=== PATIENT | male | born 1935 | race Caucasian/White ===

== ENCOUNTER → 2016-08-18 | Outpatient (CLI) | payer OTHER, BC | LOC: BHFA 15:45 | PROVIDERS: ATTEND Internal Medicine Cardiovascular Disease | DX: I48.91 Unspecified atrial fibrillation (principal); I47.1 Supraventricular tachycardia; I63.9 Cerebral infarction, unspecified; I82.409 Acute embolism and thrombosis of unspecified deep veins of unspecified lower extremity; I26.99 Other pulmonary embolism without acute cor pulmonale; R73.01 Impaired fasting glucose; Q21.1 Atrial septal defect ==

== ENCOUNTER 2016-10-13 10:04 | Emergency (ER) | payer OTHER, BC ==
[2016-10-13 10:11] VITALS: TEMP 97.7; O2SAT 95
--- NOTE | 2016-10-13 10:30 | EDPHY ---
H & P Stated Complaint: pain at back of l knee with hx of dvt on coumadin Time Seen by Provider: 10/13/16 10:14 HPI/ROS: CHIEF COMPLAINT: Concerns about DVT HISTORY OF PRESENT ILLNESS: 81-year-old male with prior history of DVT, on daily warfarin maintenance for thrombus prevention, woke it 0 200 hours complaining of left popliteal fossa pain. Atraumatic. Pain continues. No paresthesia distally. Able to bear weight. Denies: Chest pain, abdominal pain, dyspnea PRIMARY CARE PROVIDER: Dr. Nato England REVIEW OF SYSTEMS: A ten point review of systems was performed and is negative with the exception of the items mentioned in the HPI PAST MEDICAL & SURGICAL HISTORY: Prior DVT SOCIAL HISTORY: nonsmoker PHYSICAL EXAM (Prior to examination, patient consented to physical exam, hands were washed and my usual and customary physical exam procedures followed) 1) GENERAL: Well-developed, well-nourished, alert and oriented. Appears to be in no acute distress. 2) HEAD: Normocephalic, atraumatic 3) HEENT: Sclera anicteric. 4) NECK: Full range of motion, no meningeal signs. 5) LUNGS: Clear auscultation bilaterally. 6) HEART: Regular rate and rhythm. 7) ABDOMEN: No guarding, no rebound, no focal tenderness, 8) MUSCULOSKELETAL: Left lower extremity: No visible asymmetry, no tenderness to palpation including popliteal fossa. Compartments soft. DP PT pulses present and brisk bilaterally. Brisk capillary refill with normal color normal temperature distally. No pain with range of motion of the left knee. 9) BACK: no visual or palpable abnormality. 10) SKIN: No rash, no petechiae. 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 - Social History Smoking Status: Never smoked Constitutional: Initial Vital Signs Temperature (C) 36.5 C 10/13/16 10:08 Heart Rate 57 L 10/13/16 10:08 Respiratory Rate 20 10/13/16 10:08 Blood Pressure 112/64 10/13/16 10:08 O2 Sat (%) 95 10/13/16 10:08 O2 Delivery Mode Room Air Allergies/Adverse Reactions: Penicillins Allergy (Unknown, Verified 10/13/16 10:05) Other-Enter Comments Home Medications: Medication Instructions Recorded Calcium Carbonate [Oyster Shell 500 mg PO BID 03/25/13 Calcium 500 mg (*)] Diltiazem HCl [Diltiazem 24Hr Cd] 180 mg PO DAILY18 03/25/13 Chlorthalidone [Chlorthalidone 25 25 mg PO DAILY 01/13/15 mg (*)] Cholecalciferol Vit D3 [Vitamin D3 1,000 units PO BID 01/13/15 (*)] Warfarin Sodium [Coumadin 7.5MG 7.5 mg PO WESA 01/13/15 (*)] Warfarin Sodium [Jantoven] 10 mg PO SUMOTUTHFR 01/13/15 Medical Decision Making - Diagnostics Imaging Results: Imaging Impressions Extremity Venous Study 10/13/16 10:15 Impression: No deep venous thrombosis left leg. Results called and discussed with Sophie Hall PA-C, at 10/13/2016 11:06. ED Course/Re-evaluation: 11:13 a.m.: Re-evaluation. Discussed his negative imaging studies negative for DVT negative for Pablo cyst. He is neurovascular intact on re-examination with soft compartments. Doubt compartment syndrome. Doubt arterial thrombus. Plan will be discharged with my usual customary orthopedic precautions and instructions. - Data Points Laboratory Results: 10/13/16 10:32 PT 27.1 SEC H SEC (12.0-15.0) INR 2.48 H (0.83-1.16) APTT 36.0 SEC SEC (23.0-38.0) Departure - Departure Disposition: Home, Routine, Self-Care Clinical Impression: Cramp in lower extremity associated with sleep Condition: Good Instructions: Leg Cramps (ED) Additional Instructions: Return to the ER if you develop new or worsening symptoms, if you develop discoloration or any other symptoms that concern you Referrals: Nato England MD [Primary Care Provider] - 1-2 days without fail
[2016-10-13 10:48] LABS: INR 2.48 (0.83-1.16); PROTIME(PATIENT) 27.1 SEC (12.0-15.0)
[2016-10-13 11:27] VITALS: BP 105/71; PULSE 58; RESP 12
== END 2016-10-13 11:26 | disposition home or self-care (01) ==
DX: R25.2 Cramp and spasm (principal); Z79.01 Long term (current) use of anticoagulants; Z85.46 Personal history of malignant neoplasm of prostate; Z86.718 Personal history of other venous thrombosis and embolism

== ENCOUNTER → 2017-10-01 | Outpatient (CLI) | payer OTHER, BC ==
[~2017-10-01] MED LIST: GADOBUTROL 10 ML VIAL IVP ONE
== END ==
LOC: FIMAGING 09:31
PROVIDERS: ATTEND Internal Medicine Infectious Disease
DX: M65.9 Synovitis and tenosynovitis, unspecified (principal)
CPT/HCPCS: 73220; A9585

== ENCOUNTER 2017-10-22 16:29 | Emergency (ER) | payer OTHER, BC ==
[2017-10-22 16:38] VITALS: BP 120/70
--- NOTE | 2017-10-22 17:12 | EDPHY ---
H & P Time Seen by Provider: 10/22/17 16:57 HPI/ROS: CHIEF COMPLAINT: Skin tear right leg HISTORY OF PRESENT ILLNESS: 82-year-old male presents to the emergency department with skin tear to his right lower leg. The patient cut his leg on a anuradha nail that was sticking out from piece of wood. The incident happened just prior to arrival. He cleansed it with peroxide at home. His last tetanus shot was 6 months ago. Denies any other trauma or injury. ROS: Denies numbness or tingling in his toes, retained foreign body. Past Medical/Surgical History: AFib, DVT, prostate cancer, parathyroidectomy, asbestos in longs Social History: Has a life partner and lives in [place] Smoking Status: Never smoked Physical Exam: On examination the patient has superficial skin tear to the right anterior lower leg. No suturable lacerations noted. No palpable bony tenderness. Full range of motion of the right lower extremity. Normal sensation to light touch with normal 2 point discrimination. No other injuries noted. Constitutional: Initial Vital Signs Temperature (C) 36.3 C 10/22/17 16:37 Heart Rate 74 10/22/17 16:37 Respiratory Rate 16 10/22/17 16:37 Blood Pressure 120/70 10/22/17 16:37 O2 Sat (%) 94 10/22/17 16:37 O2 Delivery Mode Room Air Allergies/Adverse Reactions: Penicillins Allergy (Unknown, Verified 10/22/17 16:34) Other-Enter Comments Home Medications: Medication Instructions Recorded Calcium Carbonate [Oyster Shell 500 mg PO BID 03/25/13 Calcium 500 mg (*)] Diltiazem HCl [Diltiazem 24Hr Cd] 180 mg PO DAILY18 03/25/13 Chlorthalidone [Chlorthalidone 25 25 mg PO DAILY 01/13/15 mg (*)] Cholecalciferol Vit D3 [Vitamin D3 1,000 units PO BID 01/13/15 (*)] Warfarin Sodium [Coumadin 7.5MG 7.5 mg PO WESA 01/13/15 (*)] Warfarin Sodium [Jantoven] 10 mg PO SUMOTUTHFR 01/13/15 Myrbetriq 10/22/17 MDM/Departure - [facility] ED Course/Re-evaluation: 82-year-old male presents to the emergency department with skin tear to the right lower extremity. The wound was thoroughly cleansed. Superficial skin flap was removed. Bacitracin dressing applied. The patient was given wound care precautions. His last tetanus shot was 6 months ago. - Depart Disposition: Home, Routine, Self-Care Clinical Impression: Abrasion of right leg Qualifiers: Encounter type: initial encounter Qualified Code(s): S80.811A - Abrasion, right lower leg, initial encounter Condition: Good Instructions: Abrasion (ED), Acute Wounds (ED) Additional Instructions: Return if you notice any signs or symptoms of infection such as redness, swelling, increased pain, fever, purulent drainage. Avoid any open water until the wound has completely healed. Activity as tolerated. Referrals: Nato England MD [Primary Care Provider] - As per Instructions
== END 2017-10-22 17:23 | disposition home or self-care (01) ==
DX: S80.811A Abrasion, right lower leg, initial encounter (principal); Z79.01 Long term (current) use of anticoagulants; Z85.46 Personal history of malignant neoplasm of prostate; W26.8XXA Contact with other sharp object(s), not elsewhere classified, initial encounter

== ENCOUNTER → 2017-10-28 | Outpatient (CLI) | payer OTHER, BC | LOC: BHFA 11:30 | PROVIDERS: ATTEND Internal Medicine Cardiovascular Disease | DX: R07.9 Chest pain, unspecified (principal); I48.91 Unspecified atrial fibrillation; I47.1 Supraventricular tachycardia ==

== ENCOUNTER 2018-05-21 10:25 | Emergency (ER) | payer OTHER, BC ==
--- NOTE | 2018-05-21 10:42 | EDPHY ---
H & P Time Seen by Provider: 05/21/18 10:33 HPI/ROS: CHIEF COMPLAINT: Short of breath, concerned about pneumonia HISTORY OF PRESENT ILLNESS: Patient was worried that he has pneumonia. Yesterday he felt very fatigued but he was able to run a mile, which is what he usually does. He is on warfarin for DVT and he said his INR was 1.8 a week ago. Last night he felt like he could not get enough air. He felt like he was short of breath and had open the window. He also started coughing in the last 24 hr, with a lot of sinus drainage, but no hemoptysis or sputum production. No fever or chills. Not associated with chest pain. Symptoms mild not positional or exertional. REVIEW OF SYSTEMS: Eye: no change in vision ENT: no sore throat Cardiac: no chest pain or syncope Pulmonary: HPI Abdomen: no vomiting, diarrhea, abdominal pain Musculoskeletal: no leg swelling Skin: no rash Neuro: no headache Constitutional: no fever : no urinary symptoms A comprehensive 10 point review of systems is otherwise negative aside from elements mentioned in the history of present illness. PAST MEDICAL HISTORY: DVT on warfarin, prostate cancer, AFib, parathyroid surgery Social history: Nonsmoker General Appearance: Alert and conversant, cooperative. Eyes: No scleral icterus. ENT, Mouth: Normal mucous membranes. Respiratory: Normal respiratory effort, breath sounds equal, lungs are clear to auscultation. Cardiovascular: Irregular rate and rhythm. No murmur. Gastrointestinal: Abdomen is soft and non tender. Neurological: Alert, face symmetric, normal motor and sensory in extremities. Skin: Warm and dry, no rashes. Musculoskeletal: No peripheral edema. Psychiatric: Not agitated. Emergency Department course/MDM: EKG, troponin and protime, chest x-ray. 1146: results discussed, patient would prefer to be discharged. I still think the most likely reason the for symptoms is a viral URI. Pulmonary embolism would be unlikely with a therapeutic INR. He does not have pneumonia on his chest x-ray, normal WBC and temperature. I warned the patient that acute coronary syndrome or anginal equivalent could not be excluded without further testing and observation admission, but the patient declines. He understands that delay or failure to diagnose this could result in cardiac arrest or disability or , he states that he feels fine and because he is able to run regularly without symptoms wants to go home. He clearly has capacity to make decisions regarding his care. Smoking Status: Never smoked Constitutional: Initial Vital Signs Temperature (C) 36.4 C 05/21/18 10:30 Heart Rate 73 05/21/18 10:30 Respiratory Rate 16 05/21/18 10:30 Blood Pressure 120/81 H 05/21/18 10:30 O2 Sat (%) 95 05/21/18 10:30 O2 Delivery Mode Room Air Allergies/Adverse Reactions: Penicillins Allergy (Unknown, Verified 05/21/18 10:29) Other-Enter Comments Home Medications: Medication Instructions Recorded Calcium Carbonate [Oyster Shell 500 mg PO BID 03/25/13 Calcium 500 mg (*)] Diltiazem HCl [Diltiazem 24Hr Cd] 180 mg PO DAILY18 03/25/13 Chlorthalidone [Chlorthalidone 25 25 mg PO DAILY 01/13/15 mg (*)] Cholecalciferol Vit D3 [Vitamin D3 1,000 units PO BID 01/13/15 (*)] Warfarin Sodium [Coumadin 7.5MG 7.5 mg PO WESA 01/13/15 (*)] Warfarin Sodium [Jantoven] 10 mg PO SUMOTUTHFR 01/13/15 Myrbetriq 10/22/17 Medical Decision Making - Diagnostics EKG Interpretation: 12-lead EKG interpreted by me; official reading is in computer system. My interpretation is atrial fibrillation with left axis, no ischemic changes. Imaging Results: Imaging Impressions Chest X-Ray 05/21/18 10:39 Impression: 1. No pneumonia or effusion. 2. Chronic airways disease and lingular scarring similar to 2015. Imaging: I viewed and interpreted images myself Differential Diagnosis: Differential diagnosis considered for shortness of breath including but not limited to pulmonary infectious process, COPD, asthma, pulmonary embolus and congestive heart failure. - Data Points Laboratory Results: Laboratory Results 05/21/18 10:50 05/21/18 10:50 05/21/18 05/21/18 05/21/18 10:58 10:50 10:50 WBC RBC Hgb Hct MCV MCH MCHC RDW Plt Count MPV Neut % (Auto) Lymph % (Auto) [place] % (Auto) Eos % (Auto) Baso % (Auto) Nucleat RBC Rel Count Absolute Neuts (auto) Absolute Lymphs (auto) Absolute Monos (auto) Absolute Eos (auto) Absolute Basos (auto) Absolute Nucleated RBC Immature Gran % Immature Gran # PT 23.3 SEC H SEC (12.0-15.0) INR 2.06 H (0.83-1.16) Sodium 140 mEq/L mEq/L (135-145) Potassium 4.3 mEq/L mEq/L (3.3-5.0) Chloride 109 mEq/L mEq/L (97-110) Carbon Dioxide 25 mEq/l mEq/l (22-31) Anion Gap 6 mEq/L mEq/L (6-14) BUN 25 mg/dL H mg/dL (7-23) Creatinine 1.0 mg/dL mg/dL (0.7-1.3) Estimated GFR > 60 Glucose 115 mg/dL H mg/dL (70-100) Calcium 9.0 mg/dL mg/dL (8.5-10.4) POC Troponin I 0.00 ng/mL ng/mL (0.00-0.08) 05/21/18 10:50 WBC 7.45 10^3/uL 10^3/uL (3.80-9.50) RBC 5.45 10^6/uL 10^6/uL (4.40-6.38) Hgb 16.7 g/dL g/dL (13.7-17.5) Hct 47.6 % % (40.0-51.0) MCV 87.3 fL fL (81.5-99.8) MCH 30.6 pg pg (27.9-34.1) MCHC 35.1 g/dL g/dL (32.4-36.7) RDW 13.7 % % (11.5-15.2) Plt Count 192 10^3/uL 10^3/uL (150-400) MPV 11.2 fL fL (8.7-11.7) Neut % (Auto) 72.1 % % (39.3-74.2) Lymph % (Auto) 18.3 % % (15.0-45.0) [place] % (Auto) 6.7 % % (4.5-13.0) Eos % (Auto) 1.7 % % (0.6-7.6) Baso % (Auto) 0.9 % % (0.3-1.7) Nucleat RBC Rel Count 0.0 % % (0.0-0.2) Absolute Neuts (auto) 5.37 10^3/uL 10^3/uL (1.70-6.50) Absolute Lymphs (auto) 1.36 10^3/uL 10^3/uL (1.00-3.00) Absolute Monos (auto) 0.50 10^3/uL 10^3/uL (0.30-0.80) Absolute Eos (auto) 0.13 10^3/uL 10^3/uL (0.03-0.40) Absolute Basos (auto) 0.07 10^3/uL 10^3/uL (0.02-0.10) Absolute Nucleated RBC 0.00 10^3/uL 10^3/uL (0-0.01) Immature Gran % 0.3 % % (0.0-1.1) Immature Gran # 0.02 10^3/uL 10^3/uL (0.00-0.10) PT INR Sodium Potassium Chloride Carbon Dioxide Anion Gap BUN Creatinine Estimated GFR Glucose Calcium POC Troponin I Point of Care Test Results: Chemistry 05/21/18 10:58 POC Troponin I 0.00 ng/mL ng/mL (0.00-0.08) Departure - Departure Disposition: Home, Routine, Self-Care Clinical Impression: Dyspnea Qualifiers: Dyspnea type: unspecified Qualified Code(s): R06.00 - Dyspnea, unspecified URI (upper respiratory infection) Qualifiers: URI type: unspecified URI Qualified Code(s): J06.9 - Acute upper respiratory infection, unspecified Condition: Good Instructions: Dyspnea (ED) Additional Instructions: Please return right away for any recurrent symptoms. Please follow-up with your primary care doctor in the next 24-48 hours. Referrals: Nato England MD [Primary Care Provider] - As per Instructions
[2018-05-21 11:10] LABS: PLATELET COUNT 192 10^3/uL (150-400)
[2018-05-21 11:22] LABS: INR 2.06 (0.83-1.16); PROTIME(PATIENT) 23.3 SEC (12.0-15.0)
[2018-05-21 12:00] VITALS: BP 114/77
--- NOTE | 2018-05-21 12:59 | CPEKG ---
Test Reason : OPEN Blood Pressure : / mmHG Vent. Rate : 060 BPM Atrial Rate : 060 BPM P-R Int : 162 ms QRS Dur : 104 ms QT Int : 443 ms P-R-T Axes : 000 -17 010 degrees QTc Int : 443 ms Atrial fibrillation Borderline left axis deviation Confirmed by Shravan Ballard ([id number]) on 05/21/2018 12:58:42 PM Referred By: Confirmed By:Shravan Ballard
== END 2018-05-21 12:00 | disposition home or self-care (01) ==
DX: R06.00 Dyspnea, unspecified (principal); Z79.01 Long term (current) use of anticoagulants
CPT/HCPCS: 84484-PO

== ENCOUNTER → 2018-06-10 | Outpatient (CLI) | payer OTHER, BC | LOC: FIMAGING 09:20 | PROVIDERS: ATTEND Orthopaedic Surgery Sports Medicine | DX: Z98.890 Other specified postprocedural states (principal); M75.32 Calcific tendinitis of left shoulder; M24.812 Other specific joint derangements of left shoulder, not elsewhere classified; M75.102 Unspecified rotator cuff tear or rupture of left shoulder, not specified as traumatic ==

== ENCOUNTER 2018-09-14 08:29 | Emergency (ER) | payer OTHER, BC ==
--- NOTE | 2018-09-14 09:37 | EDPHY ---
HPI/HX/ROS/PE/MDM Narrative: CHIEF COMPLAINT: Dyspnea on exertion HPI: The patient is an 83-year-old male with a history of atrial fibrillation on Coumadin. He reports increasing fatigue and cough over the last week. He has noted over the last few days that his normal exercise, which includes cycling and running, has been cut short by dyspnea. He denies chest pain. He denies syncope. He denies fever. He does complain of sinus drainage and cough , particularly at night. He is worried that he has pneumonia. REVIEW OF SYSTEMS: Aside from elements discussed in the HPI, a comprehensive 10-point review of systems was reviewed and is negative. PMH: Atrial fibrillation on Coumadin, no history of coronary disease. SOCIAL HISTORY: Retired, worked for the [employer]. Denies alcohol or drug abuse. PHYSICAL EXAM: General:Patient is alert, in no acute distress. ENT:Eyes are normal to inspection. ENT inspection normal. Neck: Normal inspection. Full range of motion. Respiratory:No respiratory distress. Breath sounds normal bilaterally. Cardiovascular: Regular rate and rhythm. Strong peripheral pulses. Normal cap refill. Abdomen:The abdomen is nontender to palpation. There are no peritoneal signs. There are normal bowel sounds. Back: Normal to inspection. No tenderness to palpation. Skin: Normal color. No rash. Warm and dry. Extremities: Normal appearance. Full range of motion. Neuro: Oriented x3. Normal motor function. Normal sensory function. ED Course: 10:55 a.m.: We performed an extensive workup on this patient which is negative , with the exception of a subtherapeutic INR. I had extensive discussion regarding our findings with the patient and explained him that his subtherapeutic INR places him at risk for PE. I recommended we perform a CT with contrast of his chest to exclude this possibility but he declines as he is concerned about the radiation. He is currently asymptomatic normal vital signs. His EKG shows atrial fibrillation with a controlled rate. I strongly recommended to the patient that he follow up with Cardiology and have a placed an order for outpatient cardiology evaluation. He also understands that he needs to follow-up with the clinic that manages his anticoagulation. The patient understands he is at risk of possible sudden cardiac or need for procedure should he in fact have a PE or other pathology that we cannot detect secondary to his refusal of CT scan. The patient is essentially presenting for dyspnea on exertion, but his exertion is quite significant. He is continuing to run 4 miles at a time and cycle. He seems to have no difficulty with activities of daily living. I see no signs of pneumonia, hypoxia, acute coronary syndrome, thoracic aortic dissection. - Data Points Imaging Results: Imaging Impressions Chest X-Ray 09/14/18 09:30 Impression: 1. No definite acute findings. 2. Likely chronic airways disease and basilar scarring. 3. Additional findings as above. Imaging: I viewed and interpreted images myself Laboratory Results: Laboratory Results 09/14/18 09:45 09/14/18 09:45 09/14/18 09/14/18 09/14/18 09:49 09:45 09:45 WBC RBC Hgb Hct MCV MCH MCHC RDW Plt Count MPV Neut % (Auto) Lymph % (Auto) [place] % (Auto) Eos % (Auto) Baso % (Auto) Nucleat RBC Rel Count Absolute Neuts (auto) Absolute Lymphs (auto) Absolute Monos (auto) Absolute Eos (auto) Absolute Basos (auto) Absolute Nucleated RBC Immature Gran % Immature Gran # PT 16.6 SEC H SEC (12.0-15.0) INR 1.41 H (0.83-1.16) D-Dimer 0.42 ug/mLFEU ug/mLFEU (0.00-0.50) Sodium Potassium Chloride Carbon Dioxide Anion Gap BUN Creatinine Estimated GFR Glucose Calcium POC Troponin I 0.00 ng/mL ng/mL (0.00-0.08) Nasal Influenza A PCR NEGATIVE FOR FLU A (NEGATIVE) Nasal Influenza B PCR NEGATIVE FOR FLU B (NEGATIVE) 09/14/18 09/14/18 09/14/18 09:45 09:45 09:37 WBC 7.85 10^3/uL 10^3/uL (3.80-9.50) RBC 5.51 10^6/uL 10^6/uL (4.40-6.38) Hgb 16.9 g/dL g/dL (13.7-17.5) Hct 47.9 % % (40.0-51.0) MCV 86.9 fL fL (81.5-99.8) MCH 30.7 pg pg (27.9-34.1) MCHC 35.3 g/dL g/dL (32.4-36.7) RDW 14.0 % % (11.5-15.2) Plt Count 182 10^3/uL 10^3/uL (150-400) MPV 10.9 fL fL (8.7-11.7) Neut % (Auto) 68.9 % % (39.3-74.2) Lymph % (Auto) 20.0 % % (15.0-45.0) [place] % (Auto) 8.4 % % (4.5-13.0) Eos % (Auto) 1.4 % % (0.6-7.6) Baso % (Auto) 1.0 % % (0.3-1.7) Nucleat RBC Rel Count 0.0 % % (0.0-0.2) Absolute Neuts (auto) 5.41 10^3/uL 10^3/uL (1.70-6.50) Absolute Lymphs (auto) 1.57 10^3/uL 10^3/uL (1.00-3.00) Absolute Monos (auto) 0.66 10^3/uL 10^3/uL (0.30-0.80) Absolute Eos (auto) 0.11 10^3/uL 10^3/uL (0.03-0.40) Absolute Basos (auto) 0.08 10^3/uL 10^3/uL (0.02-0.10) Absolute Nucleated RBC 0.00 10^3/uL 10^3/uL (0-0.01) Immature Gran % 0.3 % % (0.0-1.1) Immature Gran # 0.02 10^3/uL 10^3/uL (0.00-0.10) PT INR D-Dimer Cancelled Sodium 139 mEq/L mEq/L (135-145) Potassium 4.2 mEq/L mEq/L (3.5-5.2) Chloride 105 mEq/L mEq/L (97-110) Carbon Dioxide 24 mEq/l mEq/l (22-31) Anion Gap 10 mEq/L mEq/L (6-14) BUN 29 mg/dL H mg/dL (7-23) Creatinine 1.0 mg/dL mg/dL (0.7-1.3) Estimated GFR > 60 Glucose 89 mg/dL mg/dL (70-100) Calcium 9.0 mg/dL mg/dL (8.5-10.4) POC Troponin I Nasal Influenza A PCR Nasal Influenza B PCR Point of Care Test Results: Chemistry 09/14/18 09:49 POC Troponin I 0.00 ng/mL ng/mL (0.00-0.08) General Time Seen by Provider: 09/14/18 09:30 Initial Vital Signs: Initial Vital Signs Temperature (C) 36.5 C 09/14/18 08:33 Heart Rate 68 09/14/18 08:33 Respiratory Rate 18 09/14/18 08:33 Blood Pressure 122/77 H 09/14/18 08:33 O2 Sat (%) 97 09/14/18 08:33 O2 Delivery Mode Room Air Allergies/Adverse Reactions: Penicillins Allergy (Unknown, Verified 09/14/18 08:35) Other-Enter Comments Home Medications: Medication Instructions Recorded Calcium Carbonate [Oyster Shell 500 mg PO BID 03/25/13 Calcium 500 mg (*)] Diltiazem HCl [Diltiazem 24Hr Cd] 180 mg PO DAILY18 03/25/13 Chlorthalidone [Chlorthalidone 25 25 mg PO DAILY 01/13/15 mg (*)] Cholecalciferol Vit D3 [Vitamin D3 1,000 units PO BID 01/13/15 (*)] Warfarin Sodium [Coumadin 7.5MG 7.5 mg PO WESA 01/13/15 (*)] Warfarin Sodium [Jantoven] 10 mg PO SUMOTUTHFR 01/13/15 Myrbetriq 10/22/17 Departure - Departure Disposition: Home, Routine, Self-Care Clinical Impression: Dyspnea on exertion, Subtherapeutic anticoagulation Condition: Good Instructions: Dyspnea (ED) Additional Instructions: Follow-up with your primary doctor within 72 hours. Return to the Emergency Department for fever, chest pain, shortness of breath, increasing pain or other worsening of condition. Follow up with a channel supervisor for further testing, as soon as possible, within 72 hours. Referrals: Nato England MD [Primary Care Provider] - As per Instructions
[2018-09-14 09:57] LABS: PLATELET COUNT 182 10^3/uL (150-400)
[2018-09-14 10:13] LABS: INR 1.41 (0.83-1.16); PROTIME(PATIENT) 16.6 SEC (12.0-15.0)
[2018-09-14 11:22] VITALS: BP 113/67
--- NOTE | 2018-09-14 12:17 | CPEKG ---
Test Reason : OPEN Blood Pressure : / mmHG Vent. Rate : 054 BPM Atrial Rate : 000 BPM P-R Int : 162 ms QRS Dur : 107 ms QT Int : 451 ms P-R-T Axes : 000 -16 005 degrees QTc Int : 428 ms Atrial fibrillation Borderline left axis deviation Confirmed by Emile Gillis ([id number]) on 09/14/2018 12:17:21 PM Referred By: Emile Gillis Confirmed By:Emile Gillis
== END 2018-09-14 11:21 | disposition home or self-care (01) ==
DX: R06.09 Other forms of dyspnea (principal); I48.91 Unspecified atrial fibrillation; Z79.01 Long term (current) use of anticoagulants
CPT/HCPCS: 84484-ER

== ENCOUNTER → 2018-09-15 | Outpatient (CLI) | payer OTHER, BC | LOC: BHFA 09:30 | PROVIDERS: ATTEND Internal Medicine Cardiovascular Disease | DX: I48.91 Unspecified atrial fibrillation (principal); R06.09 Other forms of dyspnea ==

== ENCOUNTER 2018-10-13 13:47 | Day surgery (SDC) | payer OTHER, BC ==
[2018-10-13] MEDS ORDERED: ATROPINE SULFATE 1 MG/10 ML SYR IVP ONE (14:02)
[2018-10-13] MEDS ORDERED: BENZOCAINE UNIT DOSE SPRAY HURRICAINE MM ONE (14:02)
[2018-10-13] MEDS ORDERED: MIDAZOLAM 2 MG/2 ML VIAL IVP ONE (14:02)
[2018-10-13] MEDS ORDERED: NS 500 ML IV ONE (14:02)
[2018-10-13] MEDS ORDERED: fentaNYL 100 MCG/2 ML INJ IVP ONE (14:02)
[2018-10-13 14:44] LABS: INR 1.59 (0.83-1.16); PROTIME(PATIENT) 18.2 SEC (12.0-15.0)
--- NOTE | 2018-10-13 14:59 | PDANEPAE ---
ANE History of Present Illness LORIN, possible synchronized CV. ANE Past Medical History - Cardiovascular History Hx Hypertension: No Hx Arrhythmias: Yes Hx Chest Pain: No Hx Coronary Artery / Peripheral Vascular Disease: No Hx CHF / Valvular Disease: No Cardiovascular History Comment: Atrial fibrillation. - Pulmonary History Hx COPD: No Hx Asthma/Reactive Airway Disease: No Hx Recent Upper Respiratory Infection: No Hx Oxygen in Use at Home: No Hx Sleep Apnea: Yes - Endocrine History Hx Diabetes: No Hypothyroid: No Hyperthyroid: No Obesity: no - Renal History Hx Renal Disorders: Yes Renal History Comment: BPH - Neurological & Psychiatric Hx Hx Neurological and Psychiatric Disorders: No - GI History GERD: no Hx Gastrointestinal Disorders: No - Surgical History Prior Surgeries: s/p parathyroidectomy, abdominal surgery. ANE Review of Systems Review of Systems: - Exercise capacity METS (RN): 3 METS ANE Patient History - Allergies Allergies/Adverse Reactions: Penicillins Allergy (Unknown, Verified 09/14/18 08:35) Other-Enter Comments - Home Medications Home Medications: Calcium Carbonate [Oyster Shell Calcium 500 mg (*)] 500 mg PO BID 03/25/13 [ Last Taken 10/12/18] Diltiazem HCl [Diltiazem 24Hr Cd] 180 mg PO DAILY18 03/25/13 [Last Taken ] Chlorthalidone [Chlorthalidone 25 mg (*)] 12 mg PO DAILY 01/13/15 [Last Taken ] Cholecalciferol Vit D3 [Vitamin D3 (*)] 1,000 units PO BID 01/13/15 [Last Taken 10/12/18] Myrbetriq 50 mg PO DAILY 10/22/17 [Last Taken 10/12/18] Magnesium 250 mg PO DAILY 10/13/18 [Last Taken 10/12/18] - Anes Hx Anes Hx: no prior problems - Smoking Hx Smoking Status: Never smoked - Alcohol Use Alcohol Use: Rarely - Family Anes Hx Family Anes Hx: none ANE Labs/Vital Signs - Labs Result Diagrams: 10/13/18 14:10 - Vital Signs Height: 175 cm Weight: 73.5 kg ANE Physical Exam - Airway Neck exam: decreased ROM Mallampati Score: Class 1 Mouth exam: normal dental/mouth exam - Pulmonary Pulmonary: clear to auscultation - Cardiovascular Cardiovascular: irregularly irregular - ASA Status ASA Status: III ANE Anesthesia Plan Anesthesia Plan: GA with mask
[2018-10-13] MEDS ORDERED: PROPOFOL 200 MG/20 ML VIAL ONE ×2 (15:09→15:42)
--- NOTE | 2018-10-13 15:36 | PDGENHP ---
History & Physical Chief Complaint: persistent AFib History of Present Illness: persistent AFib Relevant Physical Exam: A+Ox4, irr irr, normal rate, no MRG Cardiorespiratory Assessment: persistent AFib -> LORIN/cardioversion
--- NOTE | 2018-10-13 15:56 | EPPROC ---
Electrophysiology Procedure Note: Date: 10/13/2018 Sausage Canner: Bhargav Arce MD Procedures: Transesophageal echocardiography -49785 DC cardioversion -[id number] Indications: 83-year-old male with persistent atrial fibrillation, symptomatic in the form of fatigue and dyspnea. His Coumadin levels have been inconsistently therapeutic; INR today is 1.6. Techniques: Following informed consent, the patient was brought to the EP lab in a fasting nonsedated state, in atrial fibrillation rhythm. IV sedation was provided by the anesthesiology service. Transesophageal echocardiography was performed, demonstrating the absence of left atrial appendage thrombus (see formal report for full details). After ensuring adequate sedation, defibrillation pads were applied in an anterolateral orientation. A single 200 joule biphasic R-wave synchronized transcutaneous shock was applied, resulting in termination of atrial fibrillation and resumption of sinus rhythm with frequent atrial ectopy. The patient tolerated the procedure well. EBL: None Complications: None Assessment: Successful cardioversion of persistent atrial fibrillation Plan: Stop Coumadin; start Eliquis 5 mg twice daily due to unreliably therapeutic INR Return to clinic in 1 week to reassess functional status Patient Problems: Problems Problem Status Onset Elevated INR Acute Leg hematoma Acute Arrhythmia Chronic Atrial fibrillation Chronic History of prostate cancer Chronic History of venous thrombosis and embolism Chronic Hyperlipidemia Chronic Hyperparathyroidism Chronic Inflammatory polyarthropathy Chronic Osteopenia Chronic Osteoporosis Chronic Rheumatoid arthritis Chronic Synovitis and tenosynovitis Chronic
[2018-10-13] MEDS ORDERED: APIXABAN 5 MG TAB PO SCH (16:00)
--- NOTE | 2018-10-13 16:38 | ECHO ---
[email or web address] [address] [address] Main: [phone] Echocardiography Examination Transesophageal Name: ABIOLA CABRERA MR#: [id number] Study Date: 10/13/2018 Study Time: 03:34 PM Date of : 1935 Age: 83 year(s) Height: ( ) Weight: ( ) BSA: Gender: Male Examination: LORIN Contrast: Image Quality: Rhythm: Heart Rate: BP: / Indication: Pre Cardioversion Procedure Staff Referring Physician: Tree Expert: Myles Greenfield RDCS Reading Physician: Tomás Arce MD Requesting Provider: Ordering Physician: Tomás Arce MD Indication: Pre Cardioversion Conclusions Left Ventricle: The EF is visually estimated to be 45 %. Left Atrium Appendage: No thrombus is identified. IAS: An agitated saline study was performed and was negative for intracardiac shunting. Aorta: Mild atheroma in the descending aorta. Findings Left Ventricle: Mildly reduced systolic left ventricular function. The EF is visually estimated to be 45 %. Right Ventricle: Right ventricular systolic function is normal. Left Atrium: The left atrium is moderately to severely dilated. Left Atrium Appendage: Patient: ABIOLA CABRERA Study Date: 10/13/2018 Page 1 of 2 03:34 PM There is a diminished PW-Doppler flow profile. Good color flow doppler in the left atrial appendage. No thrombus is identified. IAS: An agitated saline study was performed and was negative for intracardiac shunting. Right Atrium: The right atrium is mildly to moderately dilated. Mitral Valve: Moderate mitral regurgitation. Aortic Valve: There is no aortic stenosis. Aortic leaflets exhibit mild calcification. Tricuspid Valve: Tricuspid valve leaflets are structurally normal. Trivial tricuspid regurgitation. Pulmonic Valve: No pulmonic valve regurgitation is evident. Aorta: Mild atheroma in the descending aorta. Pericardium: A small pericardial effusion was identified. Exam Details Procedure Ordered: LORIN (No Signature Object) Patient: ABIOLA CABRERA Study Date: 10/13/2018 Page 2 of 2 03:34 PM [id number]
--- NOTE | 2018-10-14 10:08 | ECHO ---
[email or web address] [address] [address] Main: [phone] Echocardiography Examination Transthoracic Name: ABIOLA CABRERA MR#: [id number] Study Date: 10/13/2018 Study Time: 03:58 PM Date of : 1935 Age: 83 year(s) Height: 175.3 cm (69 in.) Weight: 73.01 kg (160.95 lb.) BSA: 1.88 m2 Gender: Male Examination: Echo Contrast: Image Quality: Rhythm: Normal sinus rhythm Heart Rate: 69 bpm BP: 86 mmHg/62 mmHg Indication: Post LORIN Procedure Staff Referring Physician: Aerospace Project Engineer: Myles Greenfield RDCS Reading Physician: Tomás Arce MD Requesting Provider: Ordering Physician: Tomás Arce MD Indication: Post LORIN Measurements Chambers AV/MV Label Value Normal Value Label Value Normal Value LVOT Vmax 0.8 m/s (0.7m/s - 1.1m/s) AV PGmax 15 mmHg LVOTd 2.1 cm (1.9cm - 2.1cm) AV PGmean 8 mmHg LVOT VTI 16 cm (18cm - 22cm) AV Vmax 1.93 m/s LVDd, MM 6.1 cm (4.2cm - 5.9cm) DARIEN (Vmax) 1.4 cm2 LVDd, 2D 4.4 cm (4.2cm - 5.9cm) DARIEN (VTI) 1.3 cm2 LVDs, MM 4.7 cm (2cm - 3.8cm) MV E Vmax 0.72 m/s LVDs, 2D 3.4 cm (2.1cm - 4cm) MV A Vmax 0.45 m/s IVSd, MM 1 cm (0.6cm - 0.9cm) MV E/A 1.6 IVSd, 2D 0.9 cm (0.6cm - 1.1cm) MV E/E' lateral 9.2 LVPWd, MM 1.4 cm (0.6cm - 1cm) MV E/E' septal 14.8 (0.45 - 1.25) LVPWd, 2D 1.1 cm (0.6cm - 1cm) MV E' septal 0.05 m/s LVEF, 2D 45 % (54% - 74%) MV E' lateral 0.08 m/s LVOT PGmean 1 mmHg MV E/E' mean 11.08 LVOT Vmean 0.52 m/s MV E' mean 0.06 m/s RVDd, 2D 4.2 cm (1.9cm - 3.8cm) TV/PV LA Volume, BP 99 ml (18ml - 58ml) Label Value Normal Value LADs, 2D 4.5 cm (3cm - 4cm) RA Pressure 5 mmHg LAESV index, BP 52.7 ml/m2 RVSP 45 mmHg Additional Vessels TR Pmax 40 mmHg Patient: ABIOLA CABRERA Study Date: 10/13/2018 Page 1 of 3 03:58 PM Label Value Normal Value TR Vmax 3.16 m/s AoRoot, MM 3.3 cm (2.2cm - 3.7cm) NC End pace Jewel 0.91 cm/s PV PGmax 6 mmHg PV Vmax, Caliper 1.19 m/s (0.6m/s - 0.9m/s) Conclusions Left Ventricle: Low normal left ventricular systolic function. There is mild concentric left ventricular hypertrophy. Grade II Diastolic Dysfunction. Left Atrium: The left atrium is severely dilated. Right Atrium: The right atrium is moderately dilated. Mitral Valve: Moderate mitral regurgitation. Tricuspid Valve: Right Ventricular systolic pressure is measured at 45 mmHg. Pulmonary artery pressure is mildly increased. Findings Left Ventricle: Left ventricle is normal in size. Low normal left ventricular systolic function. The EF is visually estimated to be 45 %. EF range is estimated at 40 % - 45 %. There is mild concentric left ventricular hypertrophy. Grade II Diastolic Dysfunction. Right Ventricle: Normal size right ventricle. Right ventricular systolic function is normal. Left Atrium: The left atrium is severely dilated. Right Atrium: The right atrium is moderately dilated. Mitral Valve: This exam was performed post LORIN, the MR was better visualized in the LORIN and the PISA jet demonstrated Moderate plus MR. The patient was having mulitple coughing episodes coming out of anesthesia.. Moderate mitral regurgitation. There is mild mitral calcification. Aortic Valve: No aortic valve regurgitation. There is no aortic stenosis. Aortic leaflets exhibit mild calcification. The aortic valve is trileaflet. Tricuspid Valve: Tricuspid valve leaflets are structurally normal. Mild tricuspid regurgitation. Right Ventricular systolic pressure is measured at 45 mmHg. Pulmonary artery pressure is mildly increased. Pulmonic Valve: Pulmonic leaflets are structurally normal. Mild pulmonic valve regurgitation is present. Aorta: The aorta is normal. The aortic root size in M-mode measures 3.3 cm. Aorta Measurements AoRoot, MM is 3.3 cm. Pericardium: A small pericardial effusion was identified. Patient: ABIOLA CABRERA Study Date: 10/13/2018 Page 2 of 3 03:58 PM Exam Details Procedure Ordered: Echo (No Signature Object) Patient: ABIOLA CABRERA Study Date: 10/13/2018 Page 3 of 3 03:58 PM [id number]
== END 2018-10-13 17:18 | disposition home or self-care (01) ==
LOC: FIMAGING 13:47 → FCATH 17:18
PROVIDERS: ATTEND Internal Medicine Cardiovascular Disease
PROC: B246ZZ4 Ultrasonography of Right and Left Heart, Transesophageal (ICD-10-PCS; principal; 2018-10-13)
PROC: 5A2204Z Restoration of Cardiac Rhythm, Single (ICD-10-PCS; principal; 2018-10-13)
DX: I48.1 Persistent atrial fibrillation (principal); Z86.718 Personal history of other venous thrombosis and embolism; Z86.711 Personal history of pulmonary embolism; Z79.01 Long term (current) use of anticoagulants
CPT/HCPCS: J0461; J2704

== ENCOUNTER → 2018-10-24 | Outpatient (CLI) | payer OTHER, BC | LOC: FIMAGING 07:43 | PROVIDERS: ATTEND Physician Assistant Medical | DX: N39.41 Urge incontinence (principal); R32 Unspecified urinary incontinence; N52.9 Male erectile dysfunction, unspecified; R39.15 Urgency of urination; N20.1 Calculus of ureter ==

== ENCOUNTER → 2018-11-01 | Day surgery (SDC) | payer OTHER, BC ==
[~2018-11-01] MED LIST changes: +ATROPINE SULFATE 1 MG/10 ML SYR IVP ONE; -GADOBUTROL 10 ML VIAL IVP ONE; +MIDAZOLAM 2 MG/2 ML VIAL IVP ONE; +NS 500 ML IV ONE; +fentaNYL 100 MCG/2 ML INJ IVP ONE
--- NOTE | 2018-11-06 13:38 | CPEKG ---
Test Reason : OPEN Blood Pressure : / mmHG Vent. Rate : 062 BPM Atrial Rate : 063 BPM P-R Int : 185 ms QRS Dur : 115 ms QT Int : 455 ms P-R-T Axes : 060 -21 027 degrees QTc Int : 462 ms Sinus rhythm Nonspecific intraventricular conduction delay Confirmed by Davon Espino ([id number]) on 11/06/2018 1:38:07 PM Referred By: Tomás Arce Confirmed By:Davon Espino
== END | disposition home or self-care (01) ==
LOC: FCATH 10:57
PROVIDERS: ATTEND Internal Medicine Cardiovascular Disease
DX: I48.0 Paroxysmal atrial fibrillation (principal); Z53.09 Procedure and treatment not carried out because of other contraindication; Z79.01 Long term (current) use of anticoagulants; E78.5 Hyperlipidemia, unspecified; Q21.1 Atrial septal defect; Z86.73 Personal history of transient ischemic attack (TIA), and cerebral infarction without residual deficits; Z86.711 Personal history of pulmonary embolism

== ENCOUNTER 2018-11-02 11:22 | Observation (INO) | payer OTHER, BC ==
--- NOTE | 2018-11-01 17:24 | GHP ---
[f rep st] PREOP HISTORY AND PHYSICAL ADMISSION DIAGNOSIS: Right ureteral calculus. HISTORY OF PRESENT ILLNESS: This is an 83-year-old gentleman who has had prostate cancer, treated in 2006, and has had no suggestion of recurrence. At the present time, he has presented because of abdominal pain, and he has had a CAT scan that shows a 5 mm proximal ureteral stone. He is admitted for ureteroscopy. PAST HISTORY: Noted for the prostate cancer, OAB issues. REVIEW OF SYSTEMS: Negative for cardiac, respiratory, GI, and endocrine. PHYSICAL EXAMINATION: VITAL SIGNS: Stable. CHEST: Clear. HEART: Regular rate and rhythm. ABDOMEN: Normal. No organomegaly, rebound, or guarding. EXTREMITIES: Lower extremities are normal. PLAN: At the present time, he is admitted for ureteroscopic attempt at removal of the right ureteral stone. /[id number]/MODL MTDD
--- NOTE | 2018-11-02 06:49 | PDHPUP ---
History & Physical Update H&P update statement: This history and physical update is based on an assessment of the patient which was completed after admission or registration (within 24 hours), but prior to the surgery/procedure. H&P update: H&P reviewed & patient examined, no change in patient's condition since H&P completed
[2018-11-02] MEDS ORDERED: VANCOMYCIN PHARMACY TO DOSE MISC ONE (11:50)
[2018-11-02] MEDS ORDERED: LR 1,000 ML IV ONE (11:51)
[2018-11-02] MEDS ORDERED: VANCOMYCIN HCL/NORMAL SALINE 250 ML IV ONE (13:30)
[2018-11-02] MEDS ORDERED: fentaNYL 100 MCG/2 ML INJ ONE (13:50)
[2018-11-02] MEDS ORDERED: PROPOFOL 200 MG/20 ML VIAL ONE (13:50)
[2018-11-02] MEDS ORDERED: DEXAMETHASONE 4 MG/ML VIAL ONE (13:50)
[2018-11-02] MEDS ORDERED: LIDOCAINE 2% 5 ML SDV ONE (13:50)
[2018-11-02] MEDS ORDERED: ONDANSETRON 4 MG/2 ML VIAL ONE (13:50)
--- NOTE | 2018-11-02 14:28 | PDANEPAE ---
ANE Past Medical History - Cardiovascular History Hx Hypertension: No Hx Arrhythmias: Yes Hx Chest Pain: No Hx Coronary Artery / Peripheral Vascular Disease: No Hx CHF / Valvular Disease: No Cardiovascular History Comment: Atrial fibrillation. DVT's and PE's - Pulmonary History Hx COPD: No Hx Asthma/Reactive Airway Disease: No Hx Recent Upper Respiratory Infection: No Hx Oxygen in Use at Home: No Hx Sleep Apnea: Yes Sleep Apnea Screening Result - Last Documented: Positive - Neurologic History Hx Cerebrovascular Accident: No Hx Seizures: No Hx Dementia: No - Endocrine History Hx Diabetes: No - Renal History Hx Renal Disorders: No Renal History Comment: BPH - Liver History Hx Hepatic Disorders: No - Neurological & Psychiatric Hx Hx Neurological and Psychiatric Disorders: No - Cancer History Hx Cancer: Yes Cancer History Comment: prostate - Congenital Disorder History Hx Congenital Disorders: No - GI History Hx Gastrointestinal Disorders: Yes Gastrointestinal History Comment: acid reflux - Other Health History Other Health History: sinus drainage. lower left missing tooth - Chronic Pain History Chronic Pain: No - Surgical History Prior Surgeries: s/p parathyroidectomy, abdominal surgery. ANE Review of Systems Review of Systems: - Exercise capacity METS (RN): 5 METS ANE Patient History - Allergies Allergies/Adverse Reactions: Penicillins Allergy (Unknown, Verified 11/01/18 15:30) Other-Enter Comments - Home Medications Home Medications: Calcium Carbonate [Oyster Shell Calcium 500 mg (*)] 500 mg PO BID 03/25/13 [ Last Taken 1 Week Ago ~10/26/18] Diltiazem HCl [Diltiazem 24Hr Cd] 180 mg PO DAILY18 03/25/13 [Last Taken ] Chlorthalidone [Chlorthalidone 25 mg (*)] 12 mg PO DAILY 01/13/15 [Last Taken ] Cholecalciferol Vit D3 [Vitamin D3 (*)] 1,000 units PO BID 01/13/15 [Last Taken 2 Days Ago ~10/31/18] Myrbetriq 50 mg PO DAILY 10/22/17 [Last Taken 2 Days Ago ~10/31/18] Magnesium 250 mg PO DAILY 10/13/18 [Last Taken 11/01/18] - NPO status NPO Since - Liquids (Date): 11/01/18 NPO Since - Liquids (Time): 19:00 NPO Since - Solids (Date): 11/01/18 NPO Since - Solids (Time): 19:00 - Smoking Hx Smoking Status: Never smoked - Family Anes Hx Family Hx Anesthesia Complications: none ANE Labs/Vital Signs - Vital Signs Blood Pressure: 125/74 Heart Rate: 55 Respiratory Rate: 16 O2 Sat (%): 95 Height: 175.26 cm Weight: 73.482 kg ANE Physical Exam - Airway Neck exam: FROM Mallampati Score: Class 1 Mouth exam: normal dental/mouth exam - Pulmonary Pulmonary: no respiratory distress, no rales or rhonchi, clear to auscultation - Cardiovascular Cardiovascular: regular rate and rhythym, no murmur, rub, or gallop - ASA Status ASA Status: II ANE Anesthesia Plan Anesthesia Plan: GA w LMA
--- NOTE | 2018-11-02 14:28 | POSTANESTH ---
Post Anesthetic Evaluation Cardiovascular Status: Normal, Stable Respiratory Status: Normal, Stable Level of Consciousness/Mental Status: Can Participate in Eval Pain Control: Adequate, Prn Tx Ordered Nausea/Vomiting Control: Adequate, Prn Tx Ordered Complications Possibly Related to Anesthesia: None Noted
[2018-11-02] MEDS ORDERED: ACETAMINOPHEN 500 MG TAB PO PRN (14:29)
[2018-11-02] MEDS ORDERED: LR 500 ML IV PRN (14:29)
[2018-11-02] MEDS ORDERED: PROMETHAZINE HCL 25 MG/ML INJ IVP PRN (14:29)
[2018-11-02] MEDS ORDERED: fentaNYL 100 MCG/2 ML INJ IVP PRN (14:29)
[2018-11-02] MEDS ORDERED: METOCLOPRAMIDE 10 MG/2 ML VIAL IVP PRN (14:29)
[2018-11-02] MEDS ORDERED: NALOXONE HCL 0.4 MG/ML INJ IVP PRN (14:29)
[2018-11-02] MEDS ORDERED: ALBUTEROL 3 ML DEYVIAL IH PRN (14:29)
[2018-11-02] MEDS ORDERED: NS 500 ML IV PRN (14:29)
[2018-11-02] MEDS ORDERED: HYDROmorphONE/DILAUDID 1 MG/ML INJ IVP PRN ×2 (14:29→16:12)
[2018-11-02] MEDS ORDERED: oxyCODONE IR 5 MG TAB PO PRN ×2 (14:29→16:08)
[2018-11-02] MEDS ORDERED: PHENYLEPHRINE HCL 100 MCG/ML SYR IVP PRN (14:29)
[2018-11-02] MEDS ORDERED: ONDANSETRON 4 MG/2 ML VIAL IVP PRN ×2 (14:29→16:08)
[2018-11-02] MEDS ORDERED: IOPAMIDOL (ISOVUE-M 300) 15 ML VIAL ONE ×2 (14:43→18:56)
[2018-11-02] MEDS ORDERED: LIDOCAINE 2% JELLY 20 ML (UROJECT) ONE ×2 (14:43→14:44)
[2018-11-02] MEDS ORDERED: ePHEDrine SULFATE 25 MG/5 ML SYR ONE (15:02)
[2018-11-02] MEDS ORDERED: SUCCINYLCHOLINE CHLORIDE 200 MG/10 ML SYR IVP ONE (15:28)
[2018-11-02] MEDS ORDERED: PHENYLEPHRINE HCL 100 MCG/ML SYR ONE (15:29)
[2018-11-02] MEDS ORDERED: ONDANSETRON DISINTEGRATING 4 MG TAB PO PRN (16:08)
[2018-11-02] MEDS ORDERED: ZOLPIDEM TARTRATE 5 MG TAB PO PRN (16:08)
[2018-11-02] MEDS ORDERED: ACETAMINOPHEN 325 MG TAB PO PRN (16:08)
--- NOTE | 2018-11-02 16:08 | POSTOPPROG ---
Post Op Note Date of Operation: 11/02/18 (DICTATED) Surgeon: Jaron Roy Anesthesiologist: Alisha Anesthesia: LMA Pre-op Diagnosis: rt ureterolithiasis Procedure: ureteroscopy, laser, fluoroscopy, stent placement Inf/Abcess present in the surg proc area at time of surgery?: No EBL: Minimal Drains: Other (stent, floley) Specimen(s): stone
[2018-11-02] MEDS ORDERED: D5W 1/2 NS 1,000 ML IV SCH (16:15)
--- NOTE | 2018-11-02 17:46 | GOP ---
[f rep st] OPERATIVE REPORT DATE OF OPERATION: 11/02/2018 SURGEON: Jaron Roy MD PREOPERATIVE DIAGNOSIS: Right proximal ureteral calculus and nephrolithiasis. POSTOPERATIVE DIAGNOSIS: Right proximal ureteral calculus and nephrolithiasis. PROCEDURE PERFORMED: Ureteroscopy with laser lithotripsy and fragmentation/extraction of stone the r ight ureter and placed a ureteral stent. FINDINGS: SPECIMENS: Stone. DESCRIPTION OF PROCEDURE: The gentleman underwent general anesthesia after undergoing appropriate ti me-out, being prepped draped in normal sterile fashion, in dorsal lithotomy position. Urethra normal . Prostate absent. Bladder had no tumor, stones, foreign bodies, or diverticula. The right uretera l orifice was cannulated with a Mellen catheter and retrograde revealed a proximal ureteral calculus . A guidewire was passed up beyond the stone and a ureteral access sheath in stages was used to dila te the ureter so I go over the flexible scope via the ureteral access sheath and then at that point, I was able to pass the Holmium laser fiber up, fragmented the stone in multiple fragments and removed the largest piece. It was approximately 1.2 mm and it appeared to be calcium oxalate. After remova l of the stone and the sheath, ureter appeared to be intact. Ureteral access was obtained with the g uidewire and then a 4.7 multi-length stent was passed. It curled in the renal pelvis, curled in the bladder, and Uro-jet placed in the urethra. After emptying the bladder, Lutz catheter placed. Nisa use of the ride and home situation, we did admit overnight for observation. He will be discharged to [facility]. COMPLICATIONS: None. FOLLOWUP: Need for stent removal in approximately 1 week in the office. /[id number]/MODL
--- NOTE | 2018-11-03 07:00 | SOAPPROG ---
SOPB Progress Note Assessment/Plan: Assessment: Calcium ureterolithiasis Acute POD#1, doing well, pt aware of stent presence Plan: DC home, stent out in 7 to 14 days 11/03/18 06:59 Subjective: no problem Objective: Vital Signs Temp Pulse Resp BP Pulse Ox 36.7 C 78 14 109/60 93 11/03/18 00:24 11/03/18 00:24 11/03/18 00:24 11/03/18 00:24 11/03/18 00:24 11/02/18 11/03/18 11/04/18 05:59 05:59 05:59 Intake Total 2843 Output Total 1380 Balance 1463 ICD10 Worksheet Patient Problems: Problems Problem Status Onset Calcium ureterolithiasis Acute Elevated INR Acute Leg hematoma Acute Arrhythmia Chronic Atrial fibrillation Chronic History of prostate cancer Chronic History of venous thrombosis and embolism Chronic Hyperlipidemia Chronic Hyperparathyroidism Chronic Inflammatory polyarthropathy Chronic Osteopenia Chronic Osteoporosis Chronic Rheumatoid arthritis Chronic Synovitis and tenosynovitis Chronic - ICD10 Problem Qualifiers (1) Calcium ureterolithiasis
[2018-11-03 07:01] VITALS: BP 123/72
--- NOTE | 2018-11-03 08:58 | ASDISCHSUM ---
Discharge Information Plan Status:Home with No Needs Medically Cleared to Leave: Discharge Date: CM D/C Disposition: ADT D/C Disposition:Home, Routine, Self-Care Projected Discharge Date: Transportation at D/C: Discharge Delay Reason: Follow-Up Date: Discharge Slot: Final Diagnosis: Placement Information Patient Contact Information Contact Name:UMA Relationship:Life Partner Address:[address] City:[place] Alternate Phone: State/Zip Code:[place] [address] Email: Financial Information Financial Class:Medicare Primary Plan Desc:MEDICARE OUTPATIENT Primary Plan Number:[id number] Secondary Plan Desc:[facility] Secondary Plan Number:[id number] Assessment Information LACE LACE Length of stay for Answers: 1 day current admission Acuity / Level of Answers: Yes Care: Did the patient have an inpatient admission? # of Emergency department Answers: 1-2 visits in the last 6 months Score: 5 Date Signed: 11/03/2018 08:55 AM Electronically Signed By:Ioana Rick Case Management Discharge Plan Note Case Management Discharge Discharge Order Complete? Answers: Yes Transportation Arranged Answers: Family/Friends Family Notified Answers: Yes Notes: pt called life partner Poonam Clive Discharge Comments Notes: Pt is being discharged independently to home. He told CM he has no needs for support at home. Date Signed: 11/03/2018 08:57 AM Electronically Signed By:Ioana Rick Intervention Information
[2018-11-03] MEDS ORDERED: CHOLECALCIFEROL VIT D3 1,000 UNITS TAB PO SCH (09:00)
[2018-11-03] MEDS ORDERED: FLECAINIDE ACETATE 100 MG TAB PO SCH (09:00)
[2018-11-03] MEDS ORDERED: CHLORTHALIDONE 25 MG TAB PO SCH (09:00)
[2018-11-03] MEDS ORDERED: APIXABAN 5 MG TAB PO SCH (09:00)
[2018-11-03] MEDS ORDERED: CALCIUM CARBONATE 500 MG TAB PO SCH (09:00)
[2018-11-03] MEDS ORDERED: DILTIAZEM CD 180 MG CAP PO SCH (09:00)
[2018-11-03] MEDS ORDERED: Mirabegron [Myrbetriq] 50 MG PO SCH (09:00)
== END 2018-11-03 10:27 | disposition home or self-care (01) ==
LOC: FSGY 11:22 → F3E 16:09 → F1N 18:11
PROVIDERS: ADMIT Specialist; ATTEND Specialist
DX: N13.2 Hydronephrosis with renal and ureteral calculous obstruction (principal); N39.41 Urge incontinence; I48.91 Unspecified atrial fibrillation; Z85.46 Personal history of malignant neoplasm of prostate; Z86.711 Personal history of pulmonary embolism; Z86.718 Personal history of other venous thrombosis and embolism
CPT/HCPCS: 52356; 76000; C1758; C1769; C1894; C2625; J0330; J1100; J2370; J2405; J2704; J3010; J3370; Q9967; 82365-90

== ENCOUNTER 2018-11-16 11:34 | Day surgery (SDC) | payer OTHER, BC ==
[2018-11-16] MEDS ORDERED: fentaNYL 100 MCG/2 ML INJ IVP ONE (11:38)
[2018-11-16] MEDS ORDERED: NS 500 ML IV ONE (11:38)
[2018-11-16] MEDS ORDERED: ATROPINE SULFATE 1 MG/10 ML SYR IVP ONE (11:38)
[2018-11-16] MEDS ORDERED: MIDAZOLAM 2 MG/2 ML VIAL IVP ONE (11:38)
--- NOTE | 2018-11-17 14:42 | CPEKG ---
Test Reason : OPEN Blood Pressure : / mmHG Vent. Rate : 058 BPM Atrial Rate : 059 BPM P-R Int : 188 ms QRS Dur : 111 ms QT Int : 451 ms P-R-T Axes : 056 -13 012 degrees QTc Int : 444 ms Sinus rhythm Confirmed by Eladio Shepard ([id number]) on 11/17/2018 2:41:56 PM Referred By: Tomás Arce Confirmed By:Eladio Shepard
== END 2018-11-16 12:03 | disposition home or self-care (01) ==
LOC: FCATH 11:34
PROVIDERS: ATTEND Internal Medicine Cardiovascular Disease
PROC: 4A02X4Z Measurement of Cardiac Electrical Activity, External Approach (ICD-10-PCS; principal; 2018-11-16)
DX: I48.0 Paroxysmal atrial fibrillation (principal); Z53.8 Procedure and treatment not carried out for other reasons

== ENCOUNTER 2018-11-16 19:36 | Emergency (ER) | payer OTHER, BC | END 2018-11-16 21:29 | disposition home or self-care (01) ==